=== PATIENT | female | born 1990 | race Caucasian/White ===

== ENCOUNTER 2016-03-09 11:22 | Inpatient (IN) | payer BC ==
[~2016-03-09] VITALS: Ht 162.6 cm; Wt 118.3 kg
[~2016-03-09 11:22] MED LIST: Diabeta,Micronase PO; ENDOCET 5-3251 EACH PO; GLUCOMETER MC; METFORMIN HCL500 MG PO; Motrin PO; NATALCARE RX1 TABLE1 PO; NOHOMEMEDS; ZANTAC150 MG PO; ~No Medications
[2016-03-09 12:26] LABS: EOSINOPHIL (%) 0.3 % (0-5); HEMATOCRIT 41.9 % (36.0-46.0); IMMATURE GRANULOCYTE (%) 0.2 % (0.0-0.7); IMMATURE GRANULOCYTE COUNT 0.2 K/uL; MCH 27.4 PG (29.0-34.0); MCHC 34.4 G/DL (30.0-36.0); MCV 79.8 FL (83-99); MEAN PLAT.VOLUME 12.1 uM^3 (9.5-12.4); MONOCYTE (%) 8.8 % (3-12); MONOCYTE COUNT 0.8 K/uL (0-0.8); NEUTROPHIL (%) 80.2 % (45-76); NEUTROPHIL COUNT 7.7 K/uL (1.8-6.4); PLATELET COUNT 162 K/uL (156-360); RBC DIS.WIDTH-CV 12.9 % (11.8-14.6); RBC DIS.WIDTH-SD 36.7 % (39-53); RED BLOOD COUNT 5.25 M/uL (3.80-5.20); WHITE BLOOD COUNT 9.6 K/uL (4.1-10.2)
[2016-03-09 12:35] LABS: CHLORIDE 100 mEq/L (99-109); POTASSIUM 3.6 mEq/L (3.7-5.4); SODIUM 133 mEq/L (136-147)
[2016-03-09 12:36] LABS: GLUCOSE 351 mg/dL (70-99)
[2016-03-09 12:38] LABS: ANION GAP 15 MEQ/L (2-14)
[2016-03-09 12:40] LABS: GFR ESTIMATE (CALCULATED) > 59 mL/min/
[2016-03-09 12:41] LABS: UREA NITROGEN (BUN) 5 mg/dL (9-23)
[2016-03-09 12:42] LABS: D-DIMER ELISA 1.59 mg/L FEU (< 0.57)
[2016-03-09 12:54] LABS: ADD MIUA? NO; BILIRUBIN NEGATIVE; BLOOD NEGATIVE; GLUCOSE (STRIP) >=1000; KETONES TRACE; LEUKOCYTES NEGATIVE; NITRITE NEGATIVE; PROTEIN (STRIP) NEGATIVE; SPECIFIC GRAVITY 1.043 (1.000-1.030); UCUL ADDED? NO; UROBILINOGEN 0.2 MG/DL (0.2-1.0)
[2016-03-09 13:01] LABS: COLOR LT YELLOW ((YELLOW))
[2016-03-09 13:18] LABS: INTERNAL CONTROL VALID? YES
[2016-03-09] MEDS ORDERED: ADVIL,NUPRIN,M200 MG PO (15:25)
[2016-03-09 17:52] LABS: Estimated Average Glucose 280 mg/dL (70-123); HEMOGLOBIN A1c (GLYCOHEMOGLOB) 11.4 % HGB (Below 5.7); TROP-I INTERPRETATION NEGATIVE; TROPONIN-I < 0.01 ng/mL (0.0-0.30)
[2016-03-09 20:08] LABS: INFLUENZA A VIRAL ANTIGEN NEGATIVE; INFLUENZA B VIRAL ANTIGEN NEGATIVE
[2016-03-10 00:35] LABS: POINT-OF-CARE METER ID UU13113702
[2016-03-10 01:32] VITALS: BP 126/56
[2016-03-10 04:55] VITALS: BP 104/57
[2016-03-10 07:24] LABS: ANION GAP 8 MEQ/L (2-14); CHLORIDE 106 MEQ/L (99-109); GFR ESTIMATE (CALCULATED) > 59 mL/min/; GLUCOSE 218 mg/dL (70-99); HDL CHOLESTEROL 13 MG/DL (Desirable>=50); LDL CHOLESTEROL 28 mg/dL (Desirable<100); NON-HDL CHOLESTEROL 56 mg/dL (Desirable<160); POTASSIUM 3.5 MEQ/L (3.7-5.4); SAMPLE HEMOLYSIS CHECK 0; SAMPLE ICTERIC CHECK 0; SAMPLE LIPEMIA CHECK 0; SODIUM 137 MEQ/L (136-147); TOTAL CHOLESTEROL 69 mg/dL (Desirable<200); TRIGLYCERIDES 138 MG/DL (Normal: <150); UREA NITROGEN (BUN) 7 mg/dL (9-23)
[2016-03-10 07:39] VITALS: BP 105/65
[2016-03-10 08:00] LABS: HEMATOCRIT 35.5 % (36.0-46.0); MCH 26.9 PG (29.0-34.0); MCHC 33.2 G/DL (30.0-36.0); MCV 81.1 FL (83-99); MEAN PLAT.VOLUME 11.6 uM^3 (9.5-12.4); PLATELET COUNT 166 K/uL (156-360); RBC DIS.WIDTH-SD 38.5 % (39-53); RED BLOOD COUNT 4.38 M/uL (3.80-5.20); WHITE BLOOD COUNT 8.1 K/uL (4.1-10.2)
[2016-03-10 08:10] LABS: INTERNAL CONTROL VALID? YES
[2016-03-10 11:15] VITALS: BP 114/67
[2016-03-10 15:06] VITALS: BP 112/68
[2016-03-10 19:47] VITALS: BP 118/70
[2016-03-10 21:30] LABS: POINT-OF-CARE METER ID UU13113781
[2016-03-11] VITALS: BP 115/72
[2016-03-11 03:54] VITALS: BP 112/74
[2016-03-11 06:49] LABS: HEMATOCRIT 34.4 % (36.0-46.0); MCH 26.8 PG (29.0-34.0); MCHC 33.1 G/DL (30.0-36.0); MCV 80.9 FL (83-99); MEAN PLAT.VOLUME 10.9 uM^3 (9.5-12.4); PLATELET COUNT 183 K/uL (156-360); RBC DIS.WIDTH-CV 13.2 % (11.8-14.6); RED BLOOD COUNT 4.25 M/uL (3.80-5.20); WHITE BLOOD COUNT 6.2 K/uL (4.1-10.2)
[2016-03-11 07:24] LABS: ANION GAP 7 MEQ/L (2-14); CHLORIDE 110 MEQ/L (99-109); POTASSIUM 3.7 MEQ/L (3.7-5.4); SAMPLE HEMOLYSIS CHECK 0; SAMPLE ICTERIC CHECK 0; SAMPLE LIPEMIA CHECK 0; SODIUM 140 MEQ/L (136-147)
[2016-03-11 07:30] LABS: GFR ESTIMATE (CALCULATED) > 59 mL/min/; GLUCOSE 197 mg/dL (70-99); UREA NITROGEN (BUN) 7 mg/dL (9-23)
[2016-03-11 07:46] LABS: POINT-OF-CARE METER ID UU14174216
[2016-03-11 08:30] VITALS: BP 129/84
[2016-03-11 11:33] LABS: POINT-OF-CARE METER ID UU14174216
[2016-03-11] MEDS ORDERED: LEVAQUIN750 MG PO (11:48)
[2016-03-11] MEDS ORDERED: NICODERM CQ1 EACH TD (11:48)
[2016-03-11] MEDS ORDERED: MUCINEX600 MG PO (11:48)
[2016-03-11] MEDS ORDERED: ACIDOPHILUS LA1 EACH PO (11:48)
[2016-03-11] MEDS ORDERED: VENTOLIN HFA18 GM IH (11:48)
[2016-03-11] MEDS ORDERED: LEVEMIR FL100 UNIT/1 SC (11:48)
[2016-03-11] MEDS ORDERED: METFORMIN HCL500 MG PO (12:02)
[2016-03-11 12:38] VITALS: BP 123/79
== END 2016-03-11 14:40 | disposition home or self-care (01) | DRG 871 ==
LOC: EME 11:22 → EDOF 15:52 → 4EAST 15:52
PROVIDERS: Emergency Medicine; Hospitalist; Internal Medicine; Physician Assistant
DX: A41.9 Sepsis, unspecified organism (principal); J18.9 Pneumonia, unspecified organism; E87.2 Acidosis; E87.1 Hypo-osmolality and hyponatremia; E87.6 Hypokalemia; E11.65 Type 2 diabetes mellitus with hyperglycemia; F17.210 Nicotine dependence, cigarettes, uncomplicated; Z91.14 Patient's other noncompliance with medication regimen; Z71.6 Tobacco abuse counseling
CPT/HCPCS: 71020; 71275; 80048; 80061; 81003; 82565; 82948; 83036; 83605; 84443; 84484; 84520; 84703; 85025; 85027; 85379; 87070; 87205; 87449; 87502; 87651 90; 93005; 94640; 94640 76; 94799; 99202; 99281; 99285; J0456; J0696; J1650; J1815; J2405; J7030; J7050; S0028